=== PATIENT | female | born 1970 | race Caucasian/White ===

== ENCOUNTER → 2021-01-10 | Outpatient (CLI) | payer BC ==
--- NOTE | 2021-01-10 11:56 | RAD ---
EXAM: Left ankle, 3 views. HISTORY: Fall. Pain. Swelling. COMPARISON: None. FINDINGS: 3 views of the left ankle are obtained. There is no fracture, dislocation or subluxation. T here is a chronic tiny ossicle or calcification adjacent to the anterior medial talus. There is no ev idence of an osteochondral lesion. The ankle mortise intact. IMPRESSION: No acute osseous finding. Electronically signed by: Es Perdomo MD (01/10/2021 11:53 AM) [id number]
== END ==
LOC: RAD 11:28
PROVIDERS: ATTEND Nurse Practitioner Family
DX: M25.472 Effusion, left ankle (principal)
CPT/HCPCS: 73610